=== PATIENT | female | born 1980 | race Caucasian/White ===

== ENCOUNTER → 2019-06-24 | Outpatient (CLI) | payer BC ==
[2019-06-26 15:07] LABS: HPV 16 Negative (Negative); HPV 18 Negative (Negative); HPV OTHER HR TYPES Negative (Negative)
== END | disposition home or self-care (01) ==
LOC: LAB 16:51 → LAB SHORT 16:51
PROVIDERS: Obstetrics & Gynecology
DX: Z12.4 Encounter for screening for malignant neoplasm of cervix (principal)
CPT/HCPCS: 87624; G0123

== ENCOUNTER → 2020-04-06 | Outpatient (CLI) | payer BC | END | disposition home or self-care (01) | LOC: LAB SHORT 10:18 → LAB EV 10:18 | DX: N39.0 Urinary tract infection, site not specified (principal) | CPT/HCPCS: 87077; 87086; 87186 ==

== ENCOUNTER → 2020-10-08 | Outpatient (CLI) | payer BC | END | disposition home or self-care (01) | LOC: PLD 08:45 → LAB SHORT 08:45 | DX: R30.0 Dysuria (principal) | CPT/HCPCS: 87077; 87086; 87186 ==

== ENCOUNTER → 2021-07-24 | Outpatient (CLI) | payer BC | END | disposition home or self-care (01) | LOC: LAB 08:08 → LAB SHORT 08:08 | DX: N39.0 Urinary tract infection, site not specified (principal) | CPT/HCPCS: 87086 ==

== ENCOUNTER → 2023-08-29 | Outpatient (CLI) | payer BC ==
[2023-08-29 16:15] LABS: BASOPHILS ABSOLUTE AUTO 0.02 K/mm3 (0.00-0.23); BASOPHILS PERCENT AUTO 0 % (0-2); EOSINOPHILS ABSOLUTE AUTO 0.03 K/mm3 (0.00-0.68); EOSINOPHILS PERCENT AUTO 0 % (0-6); Hematocrit 41.3 % (33.0-51.0); Hemoglobin 14.2 g/dL (11.5-16.0); IMMATURE GRAN ABSOLUTE AUTO 0.03 K/mm3 (0.00-0.10); IMMATURE GRAN PERCENT AUTO 0 % (0-1); LYMPHOCYTES PERCENT AUTO 20 % (21-46); MONOCYTES ABSOLUTE AUTO 0.46 K/mm3 (0.16-1.47); MONOCYTES PERCENT AUTO 5 % (4-13); Mean Corpuscular HGB 30.5 pg (26.0-34.0); Mean Corpuscular HGB Conc 34.4 g/dL (31.5-36.5); Mean Corpuscular Volume 89 fL (80-100); Mean Platelet Volume 9.9 fL (9.1-12.4); NEUTROPHILS ABSOLUTE AUTO 7.73 K/mm3 (1.96-9.15); NEUTROPHILS PERCENT AUTO 75 % (41-73); Platelet Count 332 K/mm3 (150-400); RDW Coefficient Variation 11.8 % (11.7-14.2); RDW Standard Deviation 37.6 fL (35.1-46.3); Red Blood Cell Count 4.65 M/mm3 (3.80-5.20); White Blood Cell Count 10.27 K/mm3 (4.00-11.30)
[2023-08-29 16:27] LABS: Albumin, Blood 4.5 g/dL (3.4-5.0); Bilirubin, Total 0.5 mg/dL (0.1-1.0); Bun/Creatinine Ratio 25.4 (12.0-20.0); Calcium, Blood 9.6 mg/dL (8.5-10.1); Creatinine, Blood 0.63 mg/dL (0.40-1.00); Globulin, Blood 4.3 g/dL (2.2-4.0); Potassium, Blood 3.7 mmol/L (3.5-5.5); Total Protein, Blood 8.8 g/dL (6.4-8.2)
== END ==
LOC: LAB SHORT 15:06 → LAB 15:06
PROVIDERS: Emergency Medicine
DX: R07.9 Chest pain, unspecified (principal)
CPT/HCPCS: 80053; 83690; 84484; 85025

== ENCOUNTER → 2023-08-29 | Outpatient (CLI) | payer BC | LOC: LAB SHORT 19:42 → LAB 19:42 | DX: R30.0 Dysuria (principal) | CPT/HCPCS: 87086 ==

== ENCOUNTER → 2024-02-11 | Outpatient (CLI) | payer BC | END | disposition home or self-care (01) | LOC: LAB SHORT 10:30 → LAB 10:30 | DX: R30.0 Dysuria (principal) | CPT/HCPCS: 87077; 87086; 87186 ==

== ENCOUNTER → 2024-05-05 | Outpatient (CLI) | payer BC | LOC: LAB 07:41 → LAB SHORT 07:41 | DX: B35.1 Tinea unguium (principal); L60.2 Onychogryphosis | CPT/HCPCS: 88305; 88312 ==

== ENCOUNTER → 2024-10-19 | Outpatient (CLI) | payer BC | LOC: LAB SHORT 10:06 → LAB 10:06 | DX: R30.0 Dysuria (principal) | CPT/HCPCS: 87077; 87086; 87186 ==

== ENCOUNTER 2025-02-11 07:30 | Inpatient (IN) | payer BC ==
[~2025-02-11] VITALS: Ht 172 cm; Wt 94.9 kg
[2025-03-09] MEDS ORDERED: MAGNESIUM250 M1 (08:57)
[2025-03-09] MEDS ORDERED: Vitamin B Comple1 EA PO (08:57)
[2025-03-09] MEDS ORDERED: PROBIOTIC1 EA14 PO (08:58)
[2025-03-09] MEDS ORDERED: DIM PLUS CDG C1 EACH PO (08:58)
[2025-03-18] VITALS (16 sets, daily range): BP systolic 107–138; BP diastolic 50–88
[2025-03-18] MEDS ORDERED: Ketorolac Tromethamine 30mg Vial IV SCH ×2 (04:00→12:00)
[2025-03-18] MEDS ORDERED: CeFAZolin Sodium 2,000 MG in NS 100 ML IV SCH (06:40)
[2025-03-18] MEDS ORDERED: Ondansetron HCl 2 MG / ML 2ML Vial ONE (07:06)
[2025-03-18] MEDS ORDERED: Rocuronium Bromide 10 MG/ML 5ML Injection IV ONE (07:06)
[2025-03-18] MEDS ORDERED: FentaNYL Citrate 50 MCG/ML 2 ML Injection ONE ×2 (07:06→09:56)
[2025-03-18] MEDS ORDERED: Dexamethasone Sod Phos 10 MG/ML 1ML VIAL ONE (07:06)
--- NOTE | 2025-03-18 07:06 | NUR ---
Ambulatory in Day Surgery History, Chart, Medications and Allergies reviewed before start of procedure. Patient reports completing Chlorhexadine shower X2 prior to admission to hospital.Lungs clear T/O to Auscultation.
[2025-03-18] MEDS ORDERED: Dexmedetomidine HCL 200 MCG / 2 ML ONE (07:08)
[2025-03-18] MEDS ORDERED: HYDROmorphone HCl/Pf 1MG SYR ONE (07:09)
[2025-03-18] MEDS ORDERED: Bupivacaine 0.5% W/EPI 1:200000 SDV 30 ML Vial ONE (07:21)
--- NOTE | 2025-03-18 07:35 | NUR ---
IV NOT PATENT. DC'D. NEW IV PLACE BY BETTYE ESQUIVEL AFTER MULTIPLE ATTEMPTS
[2025-03-18] MEDS ORDERED: Ketorolac Tromethamine 30mg Vial ONE (07:58)
[2025-03-18] MEDS ORDERED: Sugammadex Sodium 200 MG/2ML SDV (100 MG/ML) ONE (07:58)
[2025-03-18] MEDS ORDERED: FentaNYL Citrate 50 MCG/ML 2 ML Injection IV PRN ×2 (08:10→08:15)
[2025-03-18] MEDS ORDERED: Ondansetron HCl 2 MG / ML 2ML Vial IV PRN ×2 (08:15→09:20)
[2025-03-18] MEDS ORDERED: HYDROmorphone HCl/Pf 1MG SYR IV PRN ×2 (08:15)
[2025-03-18] MEDS ORDERED: HYDROcodone 5-APAP 325 TAB PO PRN (09:20)
[2025-03-18] MEDS ORDERED: fentaNYL citrate 20 MCG/ML 30MLSYR IV PRN (09:30)
--- NOTE | 2025-03-18 09:51 | NUR ---
BACKPACK, HANDBAG TO FLOOR WITH PT ON STRETCHER
--- NOTE | 2025-03-18 11:20 | NUR ---
PT RESTING IN BED, VSS, CLEAR LIQUIDS AND K PAD GIVEN.
--- NOTE | 2025-03-18 18:20 | NUR ---
PATIENT ABDOMINAL DRESSING WITH SOME DRAINAGE NOTED. DRAINAGE HAS NOT INCREASED SINCE FIRT NOTED. PATIENT WITH ADEQUATE PAIN RELIEF AFTER BEING MEDICATED. SEE OCT. SINGH CATH DRAINING VERY CLEAR URINE SCDS IN PLACE. IV FLUIDS INFUSING WITH NO DIFFICULTY PATIENT STOOD AT EDGE OF BED. PAINFUL BUT DID FAIR FAMILY AT BEDSIDE.
[2025-03-19 04:45] VITALS: BP 109/58
[2025-03-19 04:55] LABS: BASOPHILS ABSOLUTE AUTO 0.02 K/mm3 (0.00-0.23); BASOPHILS PERCENT AUTO 0 % (0-2); EOSINOPHILS ABSOLUTE AUTO 0.01 K/mm3 (0.00-0.68); EOSINOPHILS PERCENT AUTO 0 % (0-6); Hematocrit 35.1 % (33.0-51.0); Hemoglobin 12.0 g/dL (11.5-16.0); IMMATURE GRAN ABSOLUTE AUTO 0.07 K/mm3 (0.00-0.10); IMMATURE GRAN PERCENT AUTO 0 % (0-1); LYMPHOCYTES ABSOLUTE AUTO 1.99 K/mm3 (0.84-5.20); LYMPHOCYTES PERCENT AUTO 12 % (21-46); MONOCYTES ABSOLUTE AUTO 1.24 K/mm3 (0.16-1.47); MONOCYTES PERCENT AUTO 8 % (4-13); Mean Corpuscular HGB Conc 34.2 g/dL (31.5-36.5); Mean Corpuscular Volume 89 fL (80-100); NEUTROPHILS ABSOLUTE AUTO 13.07 K/mm3 (1.96-9.15); NEUTROPHILS PERCENT AUTO 80 % (41-73); NRBC ABSOLUTE 0.00 K/mm3 (0.00-0.02); NRBC Auto 0.0 /100 WBC (0.0-0.2); Platelet Count 293 K/mm3 (150-400); RDW Coefficient Variation 11.9 % (11.7-14.2); RDW Standard Deviation 37.8 fL (35.1-46.3)
[2025-03-19] MEDS ORDERED: Ketorolac Tromethamine 30mg Vial IV SCH (04:55)
--- NOTE | 2025-03-19 05:02 | NUR ---
SHIFT SUMMARY HERNANDEZ WAS ALERT AND FULLY ORIENTED ON ASSESSMENT. C/O ABD/PELVIC PAIN. PAIN MANAGEMENT EFFECTIVE. MILD VAGINAL BLEEDING, NOT SOAKING PADS. ABD DRESSING WITH SHADOWING TO LEFT AND RIGHT SIDES WITH MINIMAL GROWTH TO SHADOWED AREA. SINGH IN PLACE DRAINING CLEAR YELLOW URINE. PT DAUGHTER SLEEPING AT BEDSIDE. PT DENIES SOB, CHEST PAIN, OR N/V. NO ACUTE EVENTS TONIGHT NO NOTED CHANGES TO PT CONDITION.
[2025-03-19 07:18] VITALS: BP 117/66
[2025-03-19] MEDS ORDERED: Polyethylene Glycol 3350 17 gm PO SCH (10:05)
--- NOTE | 2025-03-19 15:47 | NUR ---
DISCHARGE: DR. AGLAVIZ SAW PT AT ABOUT 1400, PT OK TO DC. THERE IS SMALL AMT MORE BLEEDING AT TRANSVERSE INCISION. PER DR. GALAVIZ OK TO CHANGE DRESSING BEFORE DC. DRESSING CHANGED BY THIS RN AND NEW AQUACEL IN PLACE. PT GIVEN 2 AQUACELS FOR HOME AND SCRIPT. PACKET PRINTED AND PT EDUCATED. IV DC'D TIP INTACT. PT LEFT UNIT VIA WHEELCHAIR AT ABOUT 1445 WITH NORMA GUILLEN
== END 2025-03-19 15:00 | disposition home or self-care (01) | DRG 743 ==
LOC: SURS 03-18 06:15 → MEDS 03-18 06:15 → SURS 03-18 10:16
PROVIDERS: ADMIT Obstetrics & Gynecology
PROC: 0UT70ZZ Resection of Bilateral Fallopian Tubes, Open Approach (ICD-10-PCS; 2025-03-18)
PROC: 0UPD0HZ Removal of Contraceptive Device from Uterus and Cervix, Open Approach (ICD-10-PCS; 2025-03-18)
PROC: 0UT90ZL Resection of Uterus, Supracervical, Open Approach (ICD-10-PCS; principal; 2025-03-18 07:30)
DX: N92.0 Excessive and frequent menstruation with regular cycle (principal); T83.32XA Displacement of intrauterine contraceptive device, initial encounter; Y76.2 Prosthetic and other implants, materials and accessory obstetric and gynecological devices associated with adverse incidents; E66.9 Obesity, unspecified; Z68.32 Body mass index [BMI] 32.0-32.9, adult
CPT/HCPCS: 36415; 85025; 88304; 88307; A9270; J0690; J1100; J1171; J1885; J2405; J2704; J3010; J7120